=== PATIENT | male | born 1990 | race Hispanic/Latino ===

== ENCOUNTER 2018-04-08 18:00 | Emergency (ER) | payer BC ==
[2018-04-08 18:14] VITALS: O2SAT 99
[2018-04-08] MEDS ORDERED: Absorbable Gelatin Sponge Size 12-7 ONE (19:10)
[2018-04-08] MEDS ORDERED: Tdap Vaccine 0.5 ml Vial (10-64 yrs) IM ONE ×2 (19:17→19:25)
[2018-04-08] MEDS ORDERED: Gelatin Sponge 10 X 12.5 cm (Gelfilm Sterile Non Opthalmic) MM ONE (19:21)
--- NOTE | 2018-04-08 19:25 | ED PDOC ---
HPI: Wound Care - HPI Time Seen by Provider: 04/08/18 18:38 Chief Complaint (Nursing): Abnormal Skin Integrity Chief Complaint (Provider): Finger Avulsion History Per: Patient Exam Limitations: no limitations Onset/Duration Of Symptoms: Mins (just prior to arrival) Current Symptoms Are (Timing): Still Present Additional Complaint(s): 28 year old male with no pmhx presents to the ED for evaluation s/p accidentally cutting his right fifth digit with a knife. Patient reports he was washing a knife when a bag of rice fell, and when he bent over to pick it up, he subsequently cut the affected digit, prompting his immediate visit to the ED. Upon arrival, patient notes active bleeding of the wound, but denies numbness and tingling. Patient unsure of last tetanus booster. PMD: none provided Past Medical History Reviewed: Historical Data, Nursing Documentation, Vital Signs Vital Signs: Last Vital Signs Temp 98.2 F 04/08/18 18:13 Pulse 102 H 04/08/18 18:13 Resp 18 04/08/18 18:13 BP 132/81 04/08/18 18:13 Pulse Ox 99 04/08/18 18:13 - Medical History PMH: No Chronic Diseases - Surgical History Surgical History: No Surg Hx - Family History Family History: States: Unknown Family Hx - Social History Current smoker - smoking cessation education provided: No Alcohol: None Drugs: Denies - Home Medications Home Medications: Ambulatory Orders Medication Instructions Recorded Acetaminophen [Tylenol 325mg tab] 650 mg PO Q6 PRN 5 Days tab 04/08/18 - Allergies Allergies/Adverse Reactions: Allergies Allergy/AdvReac Type Severity Reaction Status Date / Time No Known Allergies Allergy Verified 04/08/18 18:10 Review of Systems ROS Statement: Except As Marked, All Systems Reviewed And Found Negative Skin: Positive for: Other (avulsion to right fifth digit with active bleeding) Neurological: Negative for: Numbness (or tingling) Physical Exam - Reviewed Nursing Documentation Reviewed: Yes Vital Signs Reviewed: Yes - Physical Exam Appears: Positive for: No Acute Distress Head Exam: Positive for: ATRAUMATIC, NORMOCEPHALIC Skin: Positive for: Normal Color, Warm, Dry Pulses-Radial (R): 2+ Extremity: Positive for: Normal ROM (at right fifth mcp, pip, and dip), Capillary Refill (less than 2 seconds), Other (Right fifth digit anterior approximately 2 -3cm superficial avulsion with some blood, no laceration noted) Neurologic/Psych: Positive for: Alert, Oriented (x3) - ECG O2 Sat by Pulse Oximetry: 99 (RA) Pulse Ox Interpretation: Normal Medical Decision Making Medical Decision Making: Time: 1916 Initial Impression: avulsion to right fifth digit Initial Plan: --Tetanus booster --Wound cleansed with copious amount of saline and betadine --Gelfoam placed with sterile gauze Scribe Attestation: Documented by Chaparrita Olsen, acting as a scribe for Amanda Ortiz PA-C. Provider Scribe Attestation: All medical record entries made by the Scribe were at my direction and personally dictated by me. I have reviewed the chart and agree that the record accurately reflects my personal performance of the history, physical exam, medical decision making, and the department course for this patient. I have also personally directed, reviewed, and agree with the discharge instructions and disposition. Disposition - Clinical Impression Clinical Impression: Finger avulsion - Patient ED Disposition Is Patient to be Admitted: No Counseled Patient/Family Regarding: Studies Performed, Diagnosis, Need For Followup - Disposition Referrals: José Tavarez MD [Staff Provider] - Disposition: Routine/Home Disposition Time: 19:32 Condition: IMPROVED Additional Instructions: Gel foam dressing should fall off on its own within the next 2 - 5 days. Do not pull it off. Use Tylenol or Motrin for pain. Return to ED if you develop numbness in the affected finger or begin bleeding briskly again. Keep area clean and dry for the next 24hrs and then clean gently with soap and water. Prescriptions: Acetaminophen [Tylenol 325mg tab] 650 mg PO Q6 PRN 5 Days tab PRN Reason: Pain, Moderate (4-7) Instructions: Wound Care (DC), Common Finger Injuries (DC) Forms: [facility] (Slovenian) Print Language: MONGOLIAN
[2018-04-08 19:33] VITALS: BP 129/78; PULSE 94; RESP 16; TEMP 98.1
== END 2018-04-08 19:33 | disposition home or self-care (01) ==
LOC: H.ER 18:00
DX: S61.306A Unspecified open wound of right little finger with damage to nail, initial encounter (principal); W26.0XXA Contact with knife, initial encounter; Y92.89 Other specified places as the place of occurrence of the external cause

== ENCOUNTER 2018-04-14 01:52 | Emergency (ER) | payer BC ==
[2018-04-14 02:22] VITALS: BMI 19.0
[2018-04-14] MEDS ORDERED: Sodium Chloride 0.9% 1,000 ML IV STA (02:55)
--- NOTE | 2018-04-14 04:38 | ED PDOC ---
HPI: Psych/Substance Abuse Time Seen by Provider: 04/14/18 02:30 Chief Complaint (Nursing): Alcohol Ingestion ED Caveat: Intoxicated History Per: Patient, EMS History/Exam Limitations: no limitations Modifying Factor(s): Alcohol Additional Complaint(s): Unknown PMHx presenting with alcohol intoxication and head injury. Patient does not remember injuring himself, unaware the he sustained a head injury. Tetanus is up to date. Admits to alcohol use but denies drugs. Past Medical History Vital Signs: Last Vital Signs Temp 97.4 F L 04/14/18 02:20 Pulse 107 H 04/14/18 02:20 Resp 20 04/14/18 02:20 BP 160/89 H 04/14/18 02:20 Pulse Ox 99 04/14/18 02:20 - Family History Family History: States: Unknown Family Hx - Home Medications Home Medications: Ambulatory Orders Medication Instructions Recorded Acetaminophen [Tylenol 325mg tab] 650 mg PO Q6 PRN 5 Days tab 04/08/18 - Allergies Allergies/Adverse Reactions: Allergies Allergy/AdvReac Type Severity Reaction Status Date / Time No Known Allergies Allergy Verified 04/08/18 18:10 Review of Systems Review Of Systems: ROS cannot be obtained secondary to pt's inabilty to answer questions. Physical Exam - Reviewed Nursing Documentation Reviewed: Yes Vital Signs Reviewed: Yes - Physical Exam Appears: Positive for: Non-toxic, No Acute Distress. Negative for: Well (Vomiting, intoxicated appearing) Head Exam: Positive for: NORMAL INSPECTION, NORMOCEPHALIC. Negative for: ATRAUMATIC (2cm laceration above R eyebrow) Skin: Positive for: Normal Color, Warm, DRY Eye Exam: Positive for: EOMI, Normal appearance, PERRL ENT: Positive for: Normal ENT Inspection Neck: Positive for: Normal, Painless ROM Cardiovascular/Chest: Positive for: Regular Rate, Rhythm, Chest Non Tender Respiratory: Positive for: Normal Breath Sounds. Negative for: Decreased Breath Sounds, Accessory Muscle Use Gastrointestinal/Abdominal: Positive for: Normal Exam, Soft Back: Positive for: Normal Inspection Extremity: Positive for: Normal ROM Neurologic/Psych: Positive for: Alert, support merchandiser II-XII, Oriented (X 3). Negative for: Motor/Sensory Deficits - ECG O2 Sat by Pulse Oximetry: 99 Pulse Ox Interpretation: Normal Medical Decision Making Medical Decision MakinAM Patient presenting with alcohol intoxication --Patient vomiting, likely from alcohol consumption --Will clean and dermabond wound --Will need head CT for head injury --Will observe till sober 530AM --Patient is well appearing, steady gait, clinically sober --Tolerating PO --Vitals improved Procedures - Laceration/Wound Repair Right Head Wound Length (cm): 2 Wound's Depth, Shape: superficial Wound Explored: clean Betadine Prep?: No Wound Repaired With: Skin adhesive Wound Complexity: Simple Disposition - Clinical Impression Clinical Impression: Alcohol abuse - Disposition Referrals: Alcoholics Anonymous [Outside] Disposition: Routine/Home Disposition Time: 05:26 Condition: STABLE Instructions: Laceration Repair With Glue (DC), Minor Head Injury, Alcohol Abuse and Alcoholism (DC) Forms: [facility] (Hebrew)
[2018-04-14 05:34] VITALS: BP 130/72; PULSE 85; RESP 16; TEMP 98.3; O2SAT 98
--- NOTE | 2018-04-14 08:36 | CT ---
Date of service: 04/14/2018 PROCEDURE: CT HEAD WITHOUT CONTRAST. HISTORY: intox, fall COMPARISON: None available. TECHNIQUE: Axial computed tomography images were obtained through the head/brain without intravenous contrast. Radiation dose: Total exam DLP = 789.06 mGy-cm. This CT exam was performed using one or more of the following dose reduction techniques: Automated exposure control, adjustment of the mA and/or kV according to patient size, and/or use of iterative reconstruction technique. FINDINGS: HEMORRHAGE: No intracranial hemorrhage. BRAIN: No mass effect or edema. No atrophy or chronic microvascular ischemic changes. VENTRICLES: Unremarkable. No hydrocephalus. CALVARIUM: Unremarkable. PARANASAL SINUSES: Unremarkable as visualized. No significant inflammatory changes. MASTOID AIR CELLS: Unremarkable as visualized. No inflammatory changes. OTHER FINDINGS: None. IMPRESSION: Normal CT of the Head.
== END 2018-04-14 05:32 | disposition home or self-care (01) ==
LOC: H.ER 01:52
DX: F10.129 Alcohol abuse with intoxication, unspecified (principal); S09.90XA Unspecified injury of head, initial encounter; Y90.7 Blood alcohol level of 200-239 mg/100 ml
CPT/HCPCS: 70450; 82948; 96361; 96374; 99285; G0480; J2405; J7030